=== PATIENT | male | born 1995 | race Asian ===

== ENCOUNTER 2019-06-28 07:36 | Emergency (ER) | payer OTHER ==
[~2019-06-28] VITALS: Ht 167.6 cm; Wt 74.8 kg
[2019-06-28 07:40] VITALS: Ht 167.6 cm; Wt 74.8 kg
[2019-06-28 08:13] VITALS: BP 128/79
== END 2019-06-28 08:13 | disposition home or self-care (01) ==
LOC: ED 07:36
DX: S01.81XA Laceration without foreign body of other part of head, initial encounter (principal); W22.03XA Walked into furniture, initial encounter; Y93.89 Activity, other specified; Y92.89 Other specified places as the place of occurrence of the external cause; Y99.0 Civilian activity done for income or pay
CPT/HCPCS: 90715

== ENCOUNTER 2019-08-18 06:34 | Emergency (ER) | payer OTHER, SELFPAY ==
[~2019-08-18] VITALS: Ht 167.6 cm; Wt 72.6 kg
[2019-08-18 06:36] VITALS: BP 130/87; Ht 167.6 cm; Wt 72.6 kg
== END 2019-08-18 08:35 | disposition home or self-care (01) ==
LOC: ED 06:34
DX: B34.9 Viral infection, unspecified (principal); Z20.828 Contact with and (suspected) exposure to other viral communicable diseases
CPT/HCPCS: 87804; Q0092; U0003-CS